=== PATIENT | male | born 1985 | race Caucasian/White ===

== ENCOUNTER 2019-12-19 14:33 | Emergency (ER) | payer BC, SELFPAY ==
[2019-12-19 14:44] VITALS: BP 147/77; PULSE 78; RESP 20; TEMP 36.5; O2SAT 99
--- NOTE | 2019-12-19 14:49 | ED.GENADULT ---
HPI - General Adult General Chief complaint: Ear Stated complaint: L ear pain Time Seen by Provider: 12/19/19 14:49 Source: patient and RN notes reviewed Mode of arrival: ambulatory Limitations: no limitations History of Present Illness HPI narrative: 34-year-old male presents with complaints of left otalgia for the past 4 days. Denies swimming or getting water into ear. Jeremiah believes it is related to wearing masks at work. History of seasonal allergies on Claritin daily, discussed using Claritin D for several weeks. Aleve daily and put Peroxide in ear with little relief. Denies ear itching, drainage, or trouble hearing. Denies URI symptoms. No high fevers or chills. Denies injury to the ear. No nasal drainage and congestion. Denies nausea, vomiting, tinnitus, and dizziness. Remains active. The patient reports he have not been diagnosed with COVID-19. The patient reports he is not waiting for the results of a COVID-19 lab test. The patient reports he do not have fever, chills, weakness, fatigue, myalgia, or facial swelling. The patient reports he do not have a new or worsening cough or shortness of breath. Denies chest pain. The patient reports he do not have any rhinorrhea, congestion, sore throat, abdominal pain, and diarrhea. Tolerating po intake well. Denies recent traveling. Denies concerns for COVID-19 or exposures been home since [id number] order except for essential household needs, working, and return home. At this time, patient is not suspected of having COVID-19. Some parts of this dictation were generated by voice recognition software and may contain typographical and/or grammatical inaccuracies. Related Data Home Medications Medication Instructions Recorded Confirmed loratadine 10 mg tablet 10 mg PO DAILY 07/12/19 12/19/19 naproxen sodium 220 mg tablet 220 mg PO BID PRN 07/12/19 12/19/19 sertraline [Zoloft] 60 mg PO DAILY 12/19/19 12/19/19 Allergies Allergy/AdvReac Type Severity Reaction Status Date / Time Penicillins Allergy Unknown Rash Verified 07/12/19 14:28 Review of Systems Review of Systems: Narrative: CONSTITUTIONAL: Denies fever, chills, sweats. EYES: Denies visual changes, redness, discharge. ENT: Denies rhinorrhea, congestion, sore throat. Complains of LT otalgia. CARDIOVASCULAR: Denies chest pain, palpitations, edema. RESPIRATORY: Denies dyspnea, wheezing, cough. GASTROINTESTINAL: Denies abdominal pain, nausea, vomiting, diarrhea. GENITOURINARY: Denies dysuria, hematuria, abnormal discharge. SKIN: Denies rash or itching. MUSCULOSKELETAL: Denies acute back pain, joint pain, or myalgia. NEUROLOGIC: Denies numbness or focal weakness. PSYCHIATRIC: Denies anxiety or depression. All systems reviewed & are unremarkable except as noted in HPI and below. [facility] Past Medical History Medical History (Updated 12/19/19 @ 16:23 by KARLA Dorman) Chronic low back pain without sciatica Depression Environmental allergies Scoliosis Surgical History Surgical History History of cholecystectomy age 20 [place] teeth extracted around 2009 Family History Family History (Updated 12/19/19 @ 15:00 by KARLA Dorman) Father Hypertension Heart disease A-Fib Mother Heart disease A-Fib Social History Social History (Updated 12/19/19 @ 15:01 by KARLA Dorman) Smoking status: Light tobacco smoker Tobacco type: cigars Second hand tobacco smoke exposure: Yes Additional smoking assessment comments: 1 or 2 cigars a year, rarely Alcohol intake: current Substance use: never Substance use type: does not use Living arrangements: with family Occupation/Education: occupation Gender identity (if verbalized by the patient): Male Comments At time of signature, agree with nurse past medical, surgical, social, and family history. There is relevant patient's past medical histor
== END 2019-12-19 15:09 | disposition home or self-care (01) ==
PROVIDERS: Emergency Provider Nurse Practitioner Family; PCP Family Medicine
DX: H60.392 Other infective otitis externa, left ear (principal); F32.9 Major depressive disorder, single episode, unspecified; M41.9 Scoliosis, unspecified
CPT/HCPCS: 99213; G0463

== ENCOUNTER → 2021-02-26 17:01 | Outpatient (CLI) | payer BC, SELFPAY ==
--- NOTE | ~2021-02-26 | XR_ITS ---
EXAMINATION: XR lumbar spine min 4V DATE: 02/26/2021 17:33 INDICATION: Low back pain TECHNIQUE: Anteroposterior, lateral, and bilateral oblique views of the lumbar spine, and cone-down l ateral view of the lumbosacral junction were obtained. COMPARISON: 04/15/2017 and MRI, 10/11/2018 FINDINGS: There are 4 mm of stable retrolisthesis of L4 on L5 there is moderate facet osteoarthritis at L4-5. No fracture is identified. The vertebral body heights are maintained. There is unchanged sev ere loss of intervertebral disc space height at L4-5. Cholecystectomy clips are noted in the right up per quadrant. IMPRESSION: 1. Severe lumbar spondylosis at L4-5 without acute findings or significant interval change. Reviewed, dictated and finalized at location A. IMPRESSION: 1. Severe lumbar spondylosis at L4-5 without acute findings or significant inte rval change.
== END ==
DX: M47.896 Other spondylosis, lumbar region (principal)
CPT/HCPCS: 72110

== ENCOUNTER 2021-09-01 12:56 | Emergency (ER) | payer BC, SELFPAY ==
[2021-09-01 13:33] VITALS: BP 124/82; PULSE 82; RESP 16; TEMP 36.7; O2SAT 100
[2021-09-01 14:42] VITALS: BP 128/86; PULSE 74; RESP 18; TEMP 36.8; O2SAT 97
--- NOTE | 2021-09-01 15:03 | ED.BACK ---
HPI - Back Pain/Injury General Chief Complaint: Back Pain/Injury Stated Complaint: lower back pain, left leg numbness Time Seen by Provider: 09/01/21 14:54 Source: patient Mode of arrival: ambulatory Limitations: no limitations History of Present Illness HPI Narrative: 36-year male presents emergency room secondary pain in the lower portion of the back with some radiation to his left leg. He had some intermittent pain to his back for several years. But however in the last week has been getting some pain that goes down his left leg. Had MRI performed a few years ago which showed some bulging disc. Denies recent trauma injuries or falls. No urinary or bowel issues noted with this. Is just been taking some [id number] medication for this to help control the pain. He states recently got a new couch with a recliner and states been laying in that he thinks his back next gotten worse. Related Data Home Medications Medication Instructions Recorded Confirmed loratadine 10 mg tablet 10 mg PO DAILY 07/12/19 09/01/21 Allergies Allergy/AdvReac Type Severity Reaction Status Date / Time Penicillins Allergy Unknown Rash Verified 09/01/21 14:47 Review of Systems Review of Systems: CONSTITUTIONAL: Denies fever, chills, or sweats. EYES: Denies visual changes, redness, or discharge. ENT: Denies rhinorrhea, congestion, sore throat, or otalgia. CARDIOVASCULAR: Denies chest pain, palpitations, or edema. RESPIRATORY: Denies cough or dyspnea. GASTROINTESTINAL: Denies abdominal pain, nausea, vomiting, or diarrhea. GENITOURINARY: Denies dysuria or hematuria. SKIN: Denies rash or itching. MUSCULOSKELETAL: Pain in the lower portion of the back with some radiation of pain down his left leg NEUROLOGIC: Denies headache, numbness, or weakness. PSYCHIATRIC: Denies anxiety or depression. [facility] Past Medical History Medical History Chronic low back pain without sciatica Depression Environmental allergies Scoliosis Surgical History Surgical History History of cholecystectomy age 20 [place] teeth extracted around 2009 Family History Family History Father Hypertension Heart disease A-Fib Mother Heart disease A-Fib Social History Social History Smoking status: Never smoker Tobacco type: cigars Second hand tobacco smoke exposure: Yes Additional smoking assessment comments: 1 or 2 cigars a year, rarely Alcohol intake: current Alcohol use details: consumes 2 beers socially Substance use: never Substance use type: does not use Gender identity (if verbalized by the patient): Male Exam Narrative: APPEARANCE: Well appearing, no pain or distress, well-nourished. Head normocephalic and atraumatic. EYES: PERRLA/EOMI, conjunctivae very clear. NOSE: Normal with no drainage EARS:TMS clear Maribell Selby, with good light reflex. THROAT: Pharynx clear, no exudate. NECK: Supple. No adenopathy, no masses. RESPIRATORY: Airway patent, respirations nonlabored. Clear to auscultation bilaterally, no rales, rhonchi, wheezing. CARDIOVASCULAR: Regular rate and rhythm without murmurs, rubs, or gallops. ABDOMINAL: Soft, nontender, nondistended, no hepatosplenomegaly Musculoskeletal: Moves all extremities. Strength/ROM intact, No edema, No calf tenderness. Some tenderness to palpation in the left lower lumbar region. Slightly positive straight leg raising on the left at about 60 to 70 degrees. NEURO: Alert. Cranial nerves II through XII intact. Normal gait. Good coordination. Nonfocal examination. SKIN:: Warm, dry. Normal Color PSYCHIATRIC: Normal affect/mood, normal interaction Course Vital Signs Vital signs: Vital Signs Temperature 98.1 F 09/01/21 13:33 Pulse Rate 82 09/01/21 13:33 Respiratory Rate
== END 2021-09-01 15:30 | disposition home or self-care (01) ==
LOC: ANHED 15:31
PROVIDERS: Emergency Provider Emergency Medicine
DX: M54.16 Radiculopathy, lumbar region (principal); G89.29 Other chronic pain; F32.A Depression, unspecified; Z88.0 Allergy status to penicillin; Z77.22 Contact with and (suspected) exposure to environmental tobacco smoke (acute) (chronic)
CPT/HCPCS: 99283

== ENCOUNTER 2021-09-22 14:38 | Outpatient (CLI) | payer BC, SELFPAY ==
--- NOTE | ~2021-09-22 | MR_ITS ---
EXAMINATION: MR lumbar spine wo con DATE: 09/22/2021 15:21 INDICATION: Low back pain TECHNIQUE: Magnetic resonance imaging (MRI) of the lumbar spine was performed without intravenous con trast. Sequences included sagittal T2-weighted FSE, sagittal T2-weighted FS FSE, sagittal T1-weighted FSE, and axial T2-weighted FSE. COMPARISON: None FINDINGS: Review of prior scoliosis radiographs dated 10/25/2013 demonstrates 12 paired ribs with pair of hypopl astic riblets at T12. Transitional sacralized L5 segment with 4 intervening nonrib-bearing lumbar seg ments L1-L4. Approximately 10 degrees thoracolumbar levocurvature. 4 mm retrolisthesis L4 on L5. Payam tebral body heights are normal. Schmorl's node along the inferior endplate of L1. Mild disc height lo ss at T12-L1 and L2-L3. Severe disc height loss at L4-L5. T1 hyperintense L5 hemangioma. The conus me dullaris terminates at L1-L2. There is normal signal in the caudal spinal cord. Paravertebral soft ti ssues are unremarkable. The following disc levels are specifically discussed: T11-T12: The disc does not extend beyond the endplate margins. There is minimal bilateral facet joint osteoarthritis. There is no neural foraminal stenosis. There is no central canal stenosis. T12-L1: The disc does not extend beyond the endplate margin. There is mild left and minimal right fac et joint osteoarthritis. There is no neural foraminal stenosis. There is no central canal stenosis. L1-L2: Disc is mildly bulging. There is mild right facet joint osteoarthritis. There is no neural for aminal stenosis. There is mild central canal stenosis. L2-L3: Disc is bulging. There is mild right facet joint osteoarthritis. There is mild bilateral neura l foraminal stenosis. There is mild central canal stenosis. L3-L4: Disc is mildly bulging. There is minimal bilateral facet joint osteoarthritis. There is mild l eft neural foraminal stenosis. There is mild central canal stenosis. L4-L5: Annular fissure with disc extrusion of disc material extending up to 3 mm caudal to the level of the superior endplate of L5. There is moderate bilateral facet joint osteoarthritis. There is mode rate bilateral neural foraminal stenosis. There is mild central canal stenosis. L5-S1: The disc does not extend beyond the endplate margin. There is no facet joint osteoarthritis. T here is no neural foraminal stenosis. There is no central canal stenosis. IMPRESSION: 1. Relatively stable appearance of severe spondylosis at L4-L5 and mild spondylosis in the more cepha lad lumbar and lower thoracic spine. 2. 10 degree thoracolumbar levoscoliosis. Reviewed, dictated and finalized at location B. IMPRESSION: 1. Relatively stable appearance of severe spondylosis at L4-L5 and mild spondyl osis in the more cephalad lumbar and lower thoracic spine. 2. 10 degree thoracolumbar levoscoliosis.
== END 2021-09-22 14:39 | disposition home or self-care (01) ==
PROVIDERS: PCP Family Medicine; Visit Provider Family Medicine
DX: M47.816 Spondylosis without myelopathy or radiculopathy, lumbar region (principal); M47.894 Other spondylosis, thoracic region
CPT/HCPCS: 72148

== ENCOUNTER 2022-12-14 09:19 | Emergency (ER) | payer BC, SELFPAY ==
--- NOTE | ~2022-12-14 | XR_ITS ---
EXAMINATION: XR abdomen/kub 1V DATE: 12/14/2022 09:57 INDICATION: Right abdominal pain. TECHNIQUE: A supine view of the abdomen on 2 radiographs was obtained. COMPARISON: CT abdomen and pelvis 08/13/2015 FINDINGS: There are no dilated loops of bowel. There is a large volume of stool in the colon. Surgica l clips in the right upper quadrant are likely from cholecystectomy. IMPRESSION: 1. Nonobstructive bowel gas pattern. Reviewed, dictated and finalized at location A.
[2022-12-14 09:32] VITALS: BP 132/106; PULSE 110; RESP 16; TEMP 36.5; O2SAT 100
--- NOTE | 2022-12-14 09:38 | ED.ABDPAIN ---
HPI - Abdominal Pain General Chief Complaint: Abdominal Pain Stated Complaint: After Eat & Drink get chills for a week; headache Time Seen by Provider: 12/14/22 09:38 Source: patient, RN notes reviewed and old records reviewed Mode of arrival: ambulatory Limitations: no limitations History of Present Illness HPI narrative: 37 year old male presents to express care with complaints of abdominal cramping and some right abdominal discomfort in mid and upper abdomen area with decreased appetite since last Wednesday.Patient reports that his appetite is decreased has been taking fluids well, has had intermittent nausea with emesis X1 with no diarrhea. Patient also reports that he had small BM yesterday. Patient does also state headache pain behind his eyes and at times feeling flushed Patient reports that he has taken dagoberto seltzer and he has taken NyQuil to help him sleep.Patient reports that he was apple to tolerate some toast and soup yesterday and has been drinking nathalia makenna and apple juice. MD elicited complaint: abdominal pain and other (headache) Pertinent past history: other (history of cholecystectomy) Onset (ago): day(s) (5) Pain Consistency: intermittent Location: epigastric and RUQ Severity: moderate Radiation: none Treatments prior to arrival: other (dagoberto seltzer and NyQuil) Related Data Home Medications Medication Instructions Recorded Confirmed cetirizine 10 mg capsule (Zyrtec) 10 mg PO DAILY PRN Allergic 09/02/21 12/14/22 Symptoms Allergies Allergy/AdvReac Type Severity Reaction Status Date / Time Penicillins Allergy Unknown Rash Verified 12/14/22 09:30 Review of Systems Review of Systems: CONSTITUTIONAL: Denies fever, chills, reports some sweats ENT: Denies rhinorrhea, congestion, sore throat, or otalgia. CARDIOVASCULAR: Denies chest pain, palpitations, or edema. RESPIRATORY: Denies cough or dyspnea. GASTROINTESTINAL: Reports right mid abdominal pain and upper abdominal pain, nausea, vomiting X1, no diarrhea. GENITOURINARY: Denies dysuria or hematuria. SKIN: Denies rash or itching. MUSCULOSKELETAL: Denies back pain, joint pain, or myalgia. NEUROLOGIC: Reports intermittent headache,no numbness, or weakness. All systems reviewed & are unremarkable except as noted in HPI and below PMFSH Past Medical History Medical History Chronic low back pain without sciatica Depression Environmental allergies Low libido Scoliosis Surgical History Surgical History History of cholecystectomy age 20 [place] teeth extracted around 2009 Family History Family History Father Hypertension Heart disease A-Fib Mother Heart disease A-Fib Social History Social History Smoking status: Never smoker Tobacco type: cigars Second hand tobacco smoke exposure: Yes Additional smoking assessment comments: 1 or 2 cigars a year, rarely Alcohol intake: current Alcohol use details: consumes 2 beers socially Substance use: never Substance use type: does not use Lack of Transportation: No Lack of Food: Never True Current Housing: I Have Housing Concerned About Future Housing: No Difficulty Paying Gas/Electric Bills: No Difficulty Paying for Meds: No Currently Unemployed: No Education: Bachelor's Degree Difficulty w/ Childcare or Family Care: No Living arrangements: with family Occupation/Education: occupation Gender identity (if verbalized by the patient): Male Comments At time of signature, agree with nursing past medical, surgical, social and family history. There is no relevant family history pertinent to the presenting complaint Exam Narrative: GENERAL: Well-appearing, well-nourished, and in no acute distress. HEAD: Normocephalic, atraumatic.
== END 2022-12-14 10:18 | disposition home or self-care (01) ==
PROVIDERS: Emergency Provider Registered Nurse; PCP Family Medicine
DX: R11.2 Nausea with vomiting, unspecified (principal); R10.11 Right upper quadrant pain; M41.9 Scoliosis, unspecified
CPT/HCPCS: 74018; 99213; G0463

== ENCOUNTER → 2022-12-25 07:56 | Outpatient (CLI) | payer BC, SELFPAY ==
--- NOTE | ~2022-12-25 | XR_ITS ---
EXAMINATION: XR abdomen obstructive series DATE: 12/25/2022 08:26 INDICATION: 3 weeks of constipation TECHNIQUE: Frontal supine and upright views of the abdomen were obtained. COMPARISON: 12/14/2022 FINDINGS: Moderate to large amount of stool scattered throughout the colon consistent with provided history of constipation. No dilated loops of gas-filled small bowel to suggest obstruction. Cholecystectomy clip s in right upper quadrant. No free intraperitoneal gas. Visualized lung bases are clear. Heart size is normal. Mild thoracolumbar levoscoliosis. IMPRESSION: 1. Moderate to large amount of colonic stool consistent with constipation. No free intraperitoneal ga s or dilated gas-filled loops of bowel to suggest obstruction. Reviewed, dictated and finalized at location A. IMPRESSION: 1. Moderate to large amount of colonic stool consistent with constipation. No f ree intraperitoneal gas or dilated gas-filled loops of bowel to suggest obstruc tion.
== END ==
PROVIDERS: PCP Family Medicine; Visit Provider Nurse Practitioner Family
DX: K59.00 Constipation, unspecified (principal)
CPT/HCPCS: 74019

== ENCOUNTER → 2023-03-08 08:04 | Outpatient (CLI) | payer BC, SELFPAY ==
--- NOTE | ~2023-03-08 | MR_ITS ---
EXAMINATION: MR lumbar spine wo con DATE: 03/08/2023 08:30 INDICATION: Low back pain. Bilateral leg numbness. TECHNIQUE: Magnetic resonance imaging (MRI) of the lumbar spine was performed without intravenous con trast. Sequences included sagittal T2-weighted FSE, sagittal T2-weighted FS FSE, sagittal T1-weighted FSE, and axial T2-weighted FSE. COMPARISON: Lumbar spine MRI 09/22/2021. Scoliosis series 10/25/2013 FINDINGS: There is 14 degrees levoscoliosis of thoracolumbar spine. L5 is a transitional segment. The re are Schmorl's nodes at multiple levels. There is severely decreased disc height at L4-L5 with endp late remodeling. The distal spinal cord signal intensity is normal. The conus medullaris is at L1-L2. The following disc levels are specifically discussed: L1-L2: The disc does not extend beyond the endplate margin. There is mild bilateral facet joint osteo arthritis. There is no neural foraminal stenosis. There is no central canal stenosis. L2-L3: The disc is mildly bulging. There is moderate right and mild left facet joint osteoarthritis. There is mild bilateral neural foraminal stenosis. There is no central canal stenosis. L3-L4: The disc does not extend beyond the endplate margin. There is mild bilateral facet joint osteo arthritis. There is no neural foraminal stenosis. There is no central canal stenosis. L4-L5: The disc is bulging and has an annular fissure. There is moderate bilateral facet joint osteoa rthritis. There is moderate bilateral neural foraminal stenosis. There is mild central canal stenosis . L5-S1: The disc does not extend beyond the endplate margin. There is no facet joint hypertrophy. Ther e is no neural foraminal stenosis. There is no central canal stenosis. IMPRESSION: 1. Severe spondylosis at L4-L5 and mild spondylosis at other levels, stable from 09/22/2021. 2. Thoracolumbar levoscoliosis. Reviewed, dictated and finalized at location A. IMPRESSION: 1. Severe spondylosis at L4-L5 and mild spondylosis at other levels, stable fro m 09/22/2021. 2. Thoracolumbar levoscoliosis.
== END ==
DX: M47.26 Other spondylosis with radiculopathy, lumbar region (principal)
CPT/HCPCS: 72148

== ENCOUNTER 2023-03-25 09:05 | Emergency (ER) | payer BC, SELFPAY ==
--- NOTE | ~2023-03-25 | CT_ITS ---
EXAMINATION: CT abdomen pelvis w con DATE: 03/25/2023 10:01 INDICATION: Right lower quadrant abdominal pain TECHNIQUE: Computed tomography (CT) of the abdomen and pelvis was performed with 100 mL Omnipaque-350 intravenous contrast. Automated exposure control and iterative reconstruction technique were employe d. The dose-length product was 554.75 mGy-cm. COMPARISON: None FINDINGS: Lung bases are clear. Heart size is normal. No pericardial or pleural effusion. Cholecystectomy clips the gallbladder fossa. Liver, pancreas, bilateral adrenal glands and kidneys are normal. Nonspecific mild splenomegaly measuring up to 15.4 x 9.9 x 11.2 cm. Bowels including the appendix are normal wit h no periappendiceal inflammatory stranding to suggest acute appendicitis. Bladder is normal. No free intraperitoneal gas or fluid. No pathologically enlarged abdominal or pelvic lymphadenopathy. Mild l ower thoracic dextro scoliosis with compensatory mild lumbar levocurvature. Severe degenerative disc disease at L5-S1. IMPRESSION: 1. No acute intra-abdominal/pelvic process. Specifically the appendix is normal. 2. Nonspecific mild splenomegaly. Reviewed, dictated and finalized at location A. IMPRESSION: 1. No acute intra-abdominal/pelvic process. Specifically the appendix is normal . 2. Nonspecific mild splenomegaly.
[2023-03-25 09:09] VITALS: BP 131/78; PULSE 78; RESP 16; TEMP 36.4; O2SAT 97
[2023-03-25 09:36] LABS: Basophils Percent Auto 0.8 % (0.2-1.2); Eosinophils Absolute Auto 0.1 K/mm3 (0-0.3); Eosinophils Percent Auto 2.1 % (0-4.4); Hematocrit 45.4 % (42.0-52.0); Hemoglobin 15.2 g/dL (14.0-18.0); Immature Granulocyte Absolute 0.01 K/mm3 (0.00-0.031); Immature Granulocyte Percent A 0.2 % (0-0.5); Lymphocytes Absolute Auto 1.01 K/mm3 (0.9-3.2); Lymphocytes Percent Auto 19.5 % (18.3-44.2); Mean Corpuscular HGB Conc 33.5 g/dl (32-36); Mean Corpuscular Hemoglobin 28.4 pg (26-34); Mean Corpuscular Volume 84.7 fl (80-100); Mean Platelet Volume 9.4 fl (7.4-10.4); Monocytes Absolute Auto 0.3 K/mm3 (0.1-0.6); Monocytes Percent Auto 6.4 % (2.6-8.5); Neutrophils Absolute Auto 3.7 K/mm3 (1.3-6.7); Platelet Count Result 201 k/mm3 (150-375); Red Blood Count 5.36 M/mm3 (4.6-6.20); Red Cell Distribution Width 12.6 % (11.5-14.5); White Blood Count 5.2 K/mm3 (4.5-10.0)
[2023-03-25 09:43] LABS: Alanine Aminotransferase 33 U/L (6-50); Albumin Level 4.8 g/dL (3.5-5.1); Alkaline Phosphatase 42 U/L (38-126); Anion Gap 8 mmol/L (8-16); Aspartate Amino Transferase 24 U/L (17-59); Bilirubin,Total 2.4 mg/dL (0.2-1.3); Blood Urea Nitrogen 9 mg/dL (9-20); Calcium 9.3 mg/dL (8.4-10.2); Carbon Dioxide 27 mmol/L (22-30); Chloride 106 mmol/L (98-107); Estimated CRCL calculation 177 ml/min; Estimated Glomerular Filt Rate > 60; Glucose 89 mg/dL (65-110); Lipase 52 U/L (23-300); Potassium 3.9 mmol/L (3.4-5.0); Sodium 141 mmol/L (137-145)
[2023-03-25] MEDS: ONDANSETRON INJ 4 MG/2 ML VIAL IV PUSH (10:09)
[2023-03-25] MEDS: MORPHINE SULFATE (*CRX) 4 MG/ML INJ IV PUSH (10:09)
[2023-03-25 10:22] LABS: Appearance Urine Clear (Clear); Bilirubin Urine Negative (Negative); Blood Urine Negative (Negative); Color Urine Yellow (Yellow); Glucose Urine UA Negative (Negative); Ketones Urine Negative (Negative); Leukocyte Esterase Ur Negative LEU/UL (Negative); Nitrate Urine Negative (Negative); Protein Urine Negative (Negative); pH Urine 7.5 (5.0-9.0)
[2023-03-25 10:32] LABS: Add Urine Microscopic? NO; Specific Grav Ur 1.071 (1.001-1.035)
[2023-03-25 10:48] VITALS: BP 135/84; PULSE 75; RESP 18; O2SAT 100
--- NOTE | 2023-03-25 18:49 | ED.ABDPAIN ---
HPI - Abdominal Pain General Chief Complaint: Abdominal Pain Stated Complaint: abd cramping, lightheaded Time Seen by Provider: 03/25/23 09:35 History of Present Illness HPI narrative: Patient states he has not feeling well the last few days with abdominal discomfort, nausea and vomiting, he had been getting up to go to the bathroom couple days ago and felt woozy and lightheaded, he had a brief episode of syncope and had no chest pain or difficulty breathing afterwards, went to the ER by ambulance but they were too full so went home. Today his doctor sent him here because he was having abdominal pain to rule out appendicitis or other etiologies. Related Data Home Medications Medication Instructions Recorded Confirmed cetirizine 10 mg capsule (Zyrtec) 10 mg PO DAILY PRN Allergic 09/02/21 03/25/23 Symptoms Allergies Allergy/AdvReac Type Severity Reaction Status Date / Time Penicillins Allergy Unknown Rash Verified 03/25/23 08:22 Review of Systems Review of Systems: CONST: No fever. HEENT: No sore throat C/V: No chest pain RESP: No cough GI: Reports abdominal pain, nausea, vomiting : No dysuria. M/S: No joint pain. SKIN: No rash. NEURO: Syncope PSYCH: [No depression] [facility] Past Medical History Medical History Chronic low back pain without sciatica Constipation Depression Environmental allergies Low libido Scoliosis Syncope and collapse Surgical History Surgical History History of cholecystectomy age 20 [place] teeth extracted around 2009 Family History Family History Father Hypertension Heart disease A-Fib Mother Heart disease A-Fib Social History Social History Smoking status: Never smoker Tobacco type: cigars Second hand tobacco smoke exposure: Yes Additional smoking assessment comments: 1 or 2 cigars a year, rarely Alcohol intake: current Alcohol use details: consumes 2 beers socially Substance use: never Substance use type: does not use Lack of Transportation: No Lack of Food: Never True Current Housing: I Have Housing Concerned About Future Housing: No Difficulty Paying Gas/Electric Bills: No Difficulty Paying for Meds: No Currently Unemployed: No Education: Bachelor's Degree Difficulty w/ Childcare or Family Care: No Living arrangements: with family Occupation/Education: occupation Gender identity (if verbalized by the patient): Male Exam Narrative: EXAMINATION OF ORGAN SYSTEMS/BODY AREAS: Constitutional: Vital signs per nursing GENERAL:[No acute distress, non-toxic appearing.] HEAD: Normal with no signs of head trauma. EYES: EOMI, conjunctiva normal ENT: Hearing grossly intact LUNGS: Nonlabored breathing. HEART: [Regular rate and rhythm] ABD: [Soft], [mildly tender to palpation LLQ / RLQ] EXT: Normal range of motion SKIN: [No rashes or lesions.] NEURO: [Alert and oriented x 3. No gross focal sensory or strength deficits.] PSYCH: Normal affect Course Vital Signs Vital signs: Vital Signs Temperature 97.6 F 03/25/23 09:09 Pulse Rate 78 03/25/23 09:09 Respiratory Rate 16 03/25/23 09:09 Blood Pressure 131/78 03/25/23 09:09 Pulse Oximetry 97 03/25/23 09:09 Oxygen Delivery Room Air 03/25/23 09:09 Temperature 97.6 F 03/25/23 09:09 Pulse Rate 75 03/25/23 10:48 Respiratory Rate 18 03/25/23 10:48 Blood Pressure 135/84 03/25/23 10:48 Pulse Oximetry 100 03/25/23 10:48 Oxygen Delivery Room Air 03/25/23 09:09 MDM - Abdominal Pain MDM Narrative Medical decision making narrative: Electronic medical record was reviewed. Patient presented to the ED with complaint of [abdominal pain and vomiting, he also had an episode of syncope recently
== END 2023-03-25 10:50 | disposition home or self-care (01) ==
PROVIDERS: Emergency Provider Emergency Medicine; PCP Family Medicine
DX: R10.9 Unspecified abdominal pain (principal); F17.290 Nicotine dependence, other tobacco product, uncomplicated; Z90.49 Acquired absence of other specified parts of digestive tract; R16.1 Splenomegaly, not elsewhere classified
CPT/HCPCS: 36415; 74177; 80053; 81003; 83690; 85025; 96374; 96375; 99284; J2270; J2405; Q9967

== ENCOUNTER 2023-07-05 19:37 | Emergency (ER) | payer BC, SELFPAY ==
--- NOTE | ~2023-07-05 | CT_ITS ---
EXAMINATION: CT abdomen pelvis w con DATE: 07/05/2023 22:14 INDICATION: right lower quadrant pain TECHNIQUE: Computed tomography (CT) of the abdomen and pelvis was performed with 100 mL Omnipaque-350 intravenous contrast. Automated exposure control and iterative reconstruction technique were employe d. The dose-length product was 490.15 mGy-cm. COMPARISON: 03/25/2023. FINDINGS: Lower thorax: Minimal dependent atelectasis Liver: Normal. Biliary/Gallbladder: Gallbladder is absent. No bile duct dilation. Pancreas: No mass or duct dilation. Spleen: Normal. Adrenals:No mass. Kidneys: No suspicious mass, obstructing stone, or hydronephrosis. GI tract: Mild distal esophageal and gastric wall edema. No small or large bowel dilation. The append ix is compressed between loops of the cecum and small bowel and therefore partially visualized but no rmal in appearance, without inflammatory change. Mesentery/Peritoneum: No ascites, mass, or free air. Retroperitoneum: No mass. Pelvis: Pelvic organs are within normal limits. Soft Tissues: Soft tissues and body wall unremarkable. Bones: No acute osseous finding. IMPRESSION: Mild esophagitis/gastritis. Otherwise, no acute abdominopelvic process detected Reviewed, dictated and finalized at location K. ORM MACHINE OPERATOR
--- NOTE | ~2023-07-05 | CT_ITS ---
EXAMINATION: CT brain wo con DATE: 07/05/2023 22:11 INDICATION: headache . TECHNIQUE: Computed tomography (CT) of the head was performed without intravenous contrast. The mA wa s adjusted according to patient size. Iterative reconstruction technique was employed. The dose-lengt h product was 605.33 mGy-cm. COMPARISON: None. FINDINGS: No acute intracranial hemorrhage or extra-axial fluid collection. No hydrocephalus, mass, or herniation. No acute ischemic infarct. Unremarkable dural venous sinus attenuation. No acute osseous abnormality. The aerated spaces are clear. IMPRESSION: No acute intracranial process. Reviewed, dictated and finalized at location K. ECT MANAGER/DESIGN MANAGER
[2023-07-05 19:53] VITALS: BP 142/81; PULSE 80; RESP 15; TEMP 36.4; O2SAT 100
--- NOTE | 2023-07-05 19:58 | ECG_ITS ---
Measurements Intervals [place] Rate: 80 P: 72 MT: 159 QRS: 63 QRSD: 104 T: 60 QT: 373 QTc: 433 Interpretive Statements SINUS RHYTHM WITH SINUS ARRHYTHMIA NO PREVIOUS ECG AVAILABLE FOR COMPARISON Electronically Signed On 07-06-2023 8:40:46 DIRECTOR TRAFFIC [employer]ANNING by Bakari Castle M.D.
[2023-07-05 20:24] LABS: Basophils Absolute Auto 0.1 K/mm3 (0.0-0.1); Basophils Percent Auto 0.7 % (0.2-1.2); Eosinophils Absolute Auto 0.1 K/mm3 (0-0.3); Eosinophils Percent Auto 1.7 % (0-4.4); Hematocrit 48.2 % (42.0-52.0); Hemoglobin 16.4 g/dL (14.0-18.0); Immature Granulocyte Absolute 0.01 K/mm3 (0.00-0.031); Immature Granulocyte Percent A 0.1 % (0-0.5); Lymphocytes Absolute Auto 1.77 K/mm3 (0.9-3.2); Mean Corpuscular Hemoglobin 28.3 pg (26-34); Mean Corpuscular Volume 83.1 fl (80-100); Mean Platelet Volume 9.8 fl (7.4-10.4); Monocytes Absolute Auto 0.6 K/mm3 (0.1-0.6); Monocytes Percent Auto 7.5 % (2.6-8.5); Neutrophils Absolute Auto 5.8 K/mm3 (1.3-6.7); Platelet Count Result 246 k/mm3 (150-375); Red Cell Distribution Width 12.7 % (11.5-14.5); White Blood Count 8.4 K/mm3 (4.5-10.0)
[2023-07-05 20:34] LABS: Alanine Aminotransferase 27 U/L (6-50); Albumin Level 4.7 g/dL (3.5-5.1); Alkaline Phosphatase 57 U/L (38-126); Anion Gap 10 mmol/L (8-16); Aspartate Amino Transferase 20 U/L (17-59); Bilirubin,Total 2.2 mg/dL (0.2-1.3); Blood Urea Nitrogen 8 mg/dL (9-20); Calcium 10.4 mg/dL (8.4-10.2); Carbon Dioxide 26 mmol/L (22-30); Chloride 109 mmol/L (98-107); Estimated CRCL calculation 175 ml/min; Estimated Glomerular Filt Rate > 60; Glucose 102 mg/dL (65-110); Lipase 66 U/L (23-300); Potassium 3.4 mmol/L (3.4-5.0); Sodium 145 mmol/L (137-145)
[2023-07-05 21:47] VITALS: PULSE 51; RESP 16; O2SAT 100
[2023-07-05] MEDS: SODIUM CHLORIDE 0.9% IV 1,000 ML 999 ML IV CONT (21:59)
[2023-07-05] MEDS: PROCHLORPERAZINE EDISYLATE 10 MG/2 ML VIAL IV PUSH (21:59)
[2023-07-05] MEDS: diphenhydrAMINE HCl INJ 50 MG/ML VIAL IV PUSH (21:59)
[2023-07-05] MEDS: MORPHINE SULFATE (*CRX) 4 MG/ML INJ IV PUSH (23:10)
[2023-07-05] MEDS: PANTOPRAZOLE SODIUM IV 40 MG VIAL IV PUSH (23:10)
[2023-07-05 23:11] VITALS: BP 135/80; PULSE 62; RESP 17; O2SAT 99
[2023-07-06 00:25] LABS: Appearance Urine Clear (Clear); Bilirubin Urine Negative (Negative); Blood Urine Negative (Negative); Color Urine Yellow (Yellow); Glucose Urine UA Negative (Negative); Ketones Urine 1+ mg/dL (Negative); Leukocyte Esterase Ur Negative LEU/UL (Negative); Nitrate Urine Negative (Negative); Protein Urine Negative (Negative); pH Urine 7.5 (5.0-9.0)
[2023-07-06 00:26] LABS: Specific Grav Ur 1.064 (1.001-1.035)
[2023-07-06 00:27] LABS: Add Urine Microscopic? NO
--- NOTE | 2023-07-06 00:48 | ED.GENADULT ---
HPI - General Adult General Chief complaint: Abdominal Pain Stated complaint: abd pain/migraines Time Seen by Provider: 07/05/23 21:39 History of Present Illness HPI narrative: patient 38-year-old gentleman presents emergency department with chief complaint of migraine headache and abdominal pain. Patient reports he has been having epigastric discomfort for several days has had some nausea but no vomiting. The patient reports that he has also had headache his eyes the patient reports that he has noticed some tingling over his body as well during this. Patient reports thoughts primary care provider but his symptoms have not improved from the medications they gave him does report that he has had migraines in the past without last episode was approximately 10 years ago patient does report that he has had a prior cholecystectomy Related Data Home Medications Medication Instructions Recorded Confirmed cetirizine 10 mg capsule (Zyrtec) 10 mg PO DAILY PRN Allergic 09/02/21 07/05/23 Symptoms Allergies Allergy/AdvReac Type Severity Reaction Status Date / Time Penicillins Allergy Unknown Rash Verified 07/05/23 19:38 Review of Systems Review of Systems: A 10 system review of systems was completed on the patient and is negative except for what is stated in the HPI. Nursing and ancillary documentation was reviewed. [facility] Past Medical History Medical History Chronic low back pain without sciatica Constipation Depression Environmental allergies Increased frequency of headaches Low libido Migraine aura, persistent, intractable Scoliosis Syncope and collapse Surgical History Surgical History History of cholecystectomy age 20 [place] teeth extracted around 2009 Family History Family History Father Hypertension Heart disease A-Fib Mother Heart disease A-Fib Social History Social History Smoking status: Never smoker Tobacco type: cigars Second hand tobacco smoke exposure: Yes Additional smoking assessment comments: 1 or 2 cigars a year, rarely Alcohol intake: current Alcohol use details: consumes 2 beers socially Substance use: never Substance use type: does not use Lack of Transportation: No Lack of Food: Never True Current Housing: I Have Housing Concerned About Future Housing: No Difficulty Paying Gas/Electric Bills: No Difficulty Paying for Meds: No Currently Unemployed: No Education: Bachelor's Degree Difficulty w/ Childcare or Family Care: No Living arrangements: with family Occupation/Education: occupation Gender identity (if verbalized by the patient): Male Exam Narrative: GENERAL: Well-appearing, well-nourished, and in no acute distress. HEAD: Normocephalic, atraumatic. EYES: PERRLA and EOMI. ENT: Nares clear, no rhinorrhea or epistaxis. Mucous membranes moist. NECK: Supple. CHEST: Clear to auscultation. No respiratory distress. HEART: Regular rate and rhythm. No murmur heard. Normal peripheral pulses. ABDOMEN: Soft, mild tenderness to palpation in the epigastric, nondistended, normal active bowel sounds. EXTREMITIES: Normal range of motion. No edema. SKIN: Warm, dry, no rash. NEURO: No focal deficits. Alert and oriented x3. PSYCH: Normal mood and affect. Course Vital Signs Vital signs: Vital Signs Temperature 36.4 C 07/05/23 19:53 Pulse Rate 80 07/05/23 19:53 Respiratory Rate 15 07/05/23 19:53 Blood Pressure 142/81 H 07/05/23 19:53 Pulse Oximetry 100 07/05/23 19:53 Oxygen Delivery Room Air 07/05/23 19:53 Temperature 36.4 C 07/05/23 19:53 Pulse Rate 62 07/05/23 23:11 Respiratory Rate 17 07/05/23 23:11 Blood Pressure 135/80 07/05/23 23:1
[2023-07-06] MEDS: BELLADONNA ALK/PHENOB ELIX 10 ML, MAG HYDROX/ALUMINUM HYD/SIMETH 30 ML, LIDOCAINE HCL 2... PO (00:50)
[2023-07-06] MEDS: DICYCLOMINE HCL INJ 20 MG/2 ML VIAL IM (00:50)
[2023-07-06 01:09] VITALS: BP 137/85; PULSE 89; RESP 16; O2SAT 98
== END 2023-07-06 01:20 | disposition home or self-care (01) ==
PROVIDERS: Emergency Provider Emergency Medicine; PCP Family Medicine
DX: G43.919 Migraine, unspecified, intractable, without status migrainosus (principal); K29.70 Gastritis, unspecified, without bleeding; Z90.49 Acquired absence of other specified parts of digestive tract; F17.210 Nicotine dependence, cigarettes, uncomplicated
CPT/HCPCS: 36415; 70450; 74177; 80053; 81003; 83690; 85025; 93005; 96361; 96372; 96374; 96375; 99284; A9270; C9113; J0500; J0780; J1200; J2270; J7030; Q9967

== ENCOUNTER 2023-12-08 11:42 | Emergency (ER) | payer BC, SELFPAY ==
[2023-12-08 11:46] VITALS: BP 136/82; PULSE 82; RESP 16; TEMP 36.8; O2SAT 100
--- NOTE | 2023-12-08 12:37 | ED.ABDPAIN ---
HPI - Abdominal Pain General Chief Complaint: Abdominal Pain Stated Complaint: ABD PAIN/DIZZY Source: patient and RN notes reviewed Mode of arrival: ambulatory Limitations: no limitations History of Present Illness HPI narrative: 38 y/o male presented for c/o upper abdominal pain, nausea, diarrhea x2-3 days. Able to eat bland foods yesterday, and took Tums with minimal improvement. Today he cannot tolerate food due to the sharp pain. Pain is worse when laying down. LBM today, states it has been loose and difficult to defecate. Denies vomiting, dysphagia, hematochezia or melena, fever, or lethargy. Has had similar episodes 02/2023 and 07/2023, was told he has 'holes in the stomach.' Hx cholecystectomy. Related Data Home Medications Medication Instructions Recorded Confirmed cetirizine 10 mg capsule (Zyrtec) 10 mg PO DAILY PRN Allergic 09/02/21 12/08/23 Symptoms Allergies Allergy/AdvReac Type Severity Reaction Status Date / Time Penicillins Allergy Unknown Rash Verified 12/08/23 11:54 Review of Systems Review of Systems: CONSTITUTIONAL: Denies body aches, fever, chills CARDIOVASCULAR: Denies chest pain, palpitations, or edema. RESPIRATORY: Denies cough or dyspnea. GASTROINTESTINAL: Endorses abdominal pain, nausea, diarrhea. Denies vomiting hematochezia, melena, hematemesis GENITOURINARY: Denies dysuria, hematuria, or CVA tenderness. SKIN: Denies rash MUSCULOSKELETAL: Denies back pain, joint pain, or myalgia. NEUROLOGIC: Denies headache, numbness, tingling, or weakness. All systems reviewed & are unremarkable except as noted in HPI and below PMFSH Past Medical History Medical History Annual visit for general adult medical examination without abnormal findings Chronic low back pain without sciatica Constipation Depression Environmental allergies GERD (gastroesophageal reflux disease) Increased frequency of headaches Low libido Migraine aura, persistent, intractable Scoliosis Syncope and collapse Surgical History Surgical History History of cholecystectomy age 20 [place] teeth extracted around 2009 Family History Family History Father Hypertension Heart disease A-Fib Mother Heart disease A-Fib Social History Social History Smoking status: Never smoker Tobacco type: cigars Second hand tobacco smoke exposure: Yes Additional smoking assessment comments: 1 or 2 cigars a year, rarely Alcohol intake: current Alcohol use details: consumes 2 beers socially Substance use: never Substance use type: does not use Do You Feel Safe in your Home?: Yes Lack of Transportation: No Lack of Food: Never True Current Housing: I Have Housing Concerned About Future Housing: No Difficulty Paying Gas/Electric Bills: No Difficulty Paying for Meds: No Currently Unemployed: No Education: Bachelor's Degree Difficulty w/ Childcare or Family Care: No Living arrangements: with family Occupation/Education: occupation Gender identity (if verbalized by the patient): Male Comments At time of signature, I have reviewed and agree with nursing past medical, surgical, social and family history unless otherwise noted. Please see nursing chart for further information. There is no relevant family history pertinent to the presenting complaint Exam Narrative: GENERAL: Well-appearing, and in no acute distress. EYES: EOMI. Conjunctivae normal. ENT: Mucous membranes pink and moist. CHEST: No respiratory distress. Clear to auscultation. HEART: Regular rate and rhythm. No murmur appreciated. Normal peripheral pulses. ABDOMEN: abd soft, nondistended, normal active bowel sounds. Tender abdomen to epigastric and upper quadrants; No guarding, rebound tenderness,
== END 2023-12-08 12:52 | disposition home or self-care (01) ==
PROVIDERS: Emergency Provider Nurse Practitioner Family; PCP Family Medicine
DX: R10.13 Epigastric pain (principal); R10.11 Right upper quadrant pain; R10.12 Left upper quadrant pain; K21.9 Gastro-esophageal reflux disease without esophagitis; M41.9 Scoliosis, unspecified
CPT/HCPCS: 99212; G0463

== ENCOUNTER 2023-12-08 13:16 | Emergency (ER) | payer BC, SELFPAY ==
--- NOTE | ~2023-12-08 | CT_ITS ---
EXAMINATION: CT abdomen pelvis w con DATE: 12/08/2023 15:01 INDICATION: Abdominal pain in the right upper quadrant worsening when eating TECHNIQUE: Computed tomography (CT) of the abdomen and pelvis was performed with 100 mL Omnipaque-350 intravenous contrast. Automated exposure control and iterative reconstruction technique were employe d. The dose-length product was 482.84 mGy-cm. COMPARISON: 07/05/2023 FINDINGS: The visualized thoracic dextrorotoscoliosis with associated chest wall deformity. Mild dependent atel ectasis in the left lower lobe. Heart size is normal. No pericardial or pleural effusion. Cholecystec indu clips the gallbladder fossa. Liver is normal with no intra or extrahepatic biliary ductal dilati on. Splenomegaly measuring 15.3 cm in maximal transaxial length. Pancreas, bilateral adrenal glands a nd kidneys are normal. Bowels including the appendix are normal with no obstruction. Bladder is shirlene l. Trace amount of free fluid in the deep pelvis . No abscess or free intraperineal gas. Severe spond ylosis at the lumbosacral junction. No pathologically enlarged abdominal or pelvic lymphadenopathy. T iny fat-containing umbilical hernia. IMPRESSION: 1. Trace amount of nonspecific free fluid in the deep pelvis of indeterminate etiology with no other acute intra-abdominal/pelvic process. 2. Nonspecific mild splenomegaly. Reviewed, dictated and finalized at location A. IMPRESSION: 1. Trace amount of nonspecific free fluid in the deep pelvis of indeterminate e tiology with no other acute intra-abdominal/pelvic process. 2. Nonspecific mild splenomegaly.
[2023-12-08 13:18] VITALS: BP 139/81; PULSE 86; RESP 20; TEMP 36.4; O2SAT 99
--- NOTE | 2023-12-08 13:31 | PC.NURSE ---
upon initiation of IV, patient became very diaphoretic and felt as if he was going to pass out. assisted patient to room, assisted to bed, cool washcloths given. IV started and blood obtained. patient states that he is feeling better. family at bedside
[2023-12-08 13:40] LABS: Basophils Absolute Auto 0.1 K/mm3 (0.0-0.1); Basophils Percent Auto 0.8 % (0.2-1.2); Eosinophils Absolute Auto 0.1 K/mm3 (0-0.3); Eosinophils Percent Auto 0.7 % (0-4.4); Hematocrit 45.3 % (42.0-52.0); Hemoglobin 16.2 g/dL (14.0-18.0); Immature Granulocyte Absolute 0.01 K/mm3 (0.00-0.031); Immature Granulocyte Percent A 0.1 % (0-0.5); Lymphocytes Absolute Auto 1.34 K/mm3 (0.9-3.2); Mean Corpuscular HGB Conc 35.8 g/dl (32-36); Mean Corpuscular Hemoglobin 29.6 pg (26-34); Mean Corpuscular Volume 82.7 fl (80-100); Mean Platelet Volume 10.4 fl (7.4-10.4); Monocytes Absolute Auto 0.5 K/mm3 (0.1-0.6); Monocytes Percent Auto 6.2 % (2.6-8.5); Neutrophils Absolute Auto 5.5 K/mm3 (1.3-6.7); Neutrophils Percent Auto 74.2 % (45.5-73.1); Platelet Count Result 199 k/mm3 (150-375); Red Blood Count 5.48 M/mm3 (4.6-6.20); White Blood Count 7.5 K/mm3 (4.5-10.0)
[2023-12-08 13:51] LABS: Alanine Aminotransferase 27 U/L (6-50); Alkaline Phosphatase 50 U/L (38-126); Anion Gap 14 mmol/L (4-12); Aspartate Amino Transferase 21 U/L (17-59); Bilirubin,Total 2.5 mg/dL (0.2-1.3); Blood Urea Nitrogen 7 mg/dL (9-20); Carbon Dioxide 24 mmol/L (22-30); Chloride 104 mmol/L (98-107); Estimated CRCL calculation 175 ml/min; Estimated Glomerular Filt Rate > 60; Glucose 99 mg/dL (65-110); Lipase 53 U/L (23-300); Potassium 3.4 mmol/L (3.4-5.0); Sodium 142 mmol/L (137-145)
--- NOTE | 2023-12-08 14:29 | ED.ABDPAIN ---
HPI - Abdominal Pain General Chief Complaint: Abdominal Pain Stated Complaint: abd pain Time Seen by Provider: 12/08/23 13:54 History of Present Illness HPI narrative: patient is a 38-year-old male with history of acid reflux, chronic back pain, depression here with abdominal pain. He states that 3-4 days ago he began having some upper abdominal pain. It seems to be worsening. He notes that it seems to be worse with certain foods and improved with gentle foods like applesauce and toast. He notes that this feels very similar to his prior episode of gastritis for which she was seen at this hospital in July of 2023. He had been taking Protonix and Carafate after that ER visit, he had been followed closely with his primary care doctor and head stop taking medications for gastritis about 3 months after initial episode. He notes that he typically watches the foods he eats but he did indulge with both alcohol and rich foods over the 01 of December weekend and is unsure if this could have triggered symptoms returning. He did have a cholecystectomy about 21 years ago. He denies fever, chills, cough, congestion but he has been experiencing a headache. Related Data Home Medications Medication Instructions Recorded Confirmed cetirizine 10 mg capsule (Zyrtec) 10 mg PO DAILY PRN Allergic 09/02/21 12/08/23 Symptoms Allergies Allergy/AdvReac Type Severity Reaction Status Date / Time Penicillins Allergy Unknown Rash Verified 12/08/23 11:54 Review of Systems Review of Systems: All systems reviewed & are unremarkable except as noted in HPI and below PMFSH Past Medical History Medical History Annual visit for general adult medical examination without abnormal findings Chronic low back pain without sciatica Constipation Depression Environmental allergies GERD (gastroesophageal reflux disease) Increased frequency of headaches Low libido Migraine aura, persistent, intractable Scoliosis Syncope and collapse Surgical History Surgical History History of cholecystectomy age 20 [place] teeth extracted around 2009 Family History Family History Father Hypertension Heart disease A-Fib Mother Heart disease A-Fib Social History Social History Smoking status: Never smoker Tobacco type: cigars Second hand tobacco smoke exposure: Yes Additional smoking assessment comments: 1 or 2 cigars a year, rarely Alcohol intake: current Alcohol use details: consumes 2 beers socially Substance use: never Substance use type: does not use Do You Feel Safe in your Home?: Yes Lack of Transportation: No Lack of Food: Never True Current Housing: I Have Housing Concerned About Future Housing: No Difficulty Paying Gas/Electric Bills: No Difficulty Paying for Meds: No Currently Unemployed: No Education: Bachelor's Degree Difficulty w/ Childcare or Family Care: No Living arrangements: with family Occupation/Education: occupation Gender identity (if verbalized by the patient): Male Exam Narrative: GENERAL: Well-appearing, well-nourished, and in no acute distress. HEAD: Normocephalic, atraumatic. EYES: PERRLA and EOMI. ENT: Nares clear. Mucous membranes moist. NECK: Supple. CHEST: Clear to auscultation. No respiratory distress. HEART: Regular rate and rhythm. Normal peripheral pulses. ABDOMEN: Soft, Epigastric tenderness with guarding. No rebound. EXTREMITIES: Normal range of motion. No edema. SKIN: Warm, dry, no rash. NEURO: No focal deficits. Alert and oriented x3. PSYCH: Normal mood and affect. Course Course Emergency Course: Chart review performed, patient here for abdominal pain. Sent by Urgent Care. Pain began 3 days ago, worse with food. Triage
[2023-12-08 14:34] VITALS: BP 116/85; PULSE 52; RESP 13; O2SAT 100
[2023-12-08] MEDS: LACTATED RINGERS 1,000 ML 999 ML IV CONT (15:09)
[2023-12-08] MEDS: ONDANSETRON INJ 4 MG/2 ML VIAL IV PUSH (15:09)
[2023-12-08] MEDS: MORPHINE SULFATE (*CRX) 4 MG/ML INJ IV PUSH (15:09)
[2023-12-08] MEDS: PANTOPRAZOLE SODIUM IV 40 MG VIAL IV PUSH (15:09)
[2023-12-08] MEDS: BELLADONNA ALK/PHENOB ELIX 10 ML, MAG HYDROX/ALUMINUM HYD/SIMETH 30 ML, LIDOCAINE HCL 2... PO (15:27)
[2023-12-08 15:58] LABS: Appearance Urine Clear (Clear); Bacteria Urine None Seen /hpf; Bilirubin Urine Negative (Negative); Blood Urine Negative (Negative); Color Urine Yellow (Yellow); Glucose Urine UA Negative (Negative); Ketones Urine Negative (Negative); Leukocyte Esterase Ur Trace LEU/UL (Negative); Nitrate Urine Negative (Negative); Non Pathogenic Casts 0-2; Protein Urine Negative (Negative); RBC Urine 0-2 /hpf (0-2); Specific Grav Ur 1.031 (1.001-1.035); Squamous Epithelial Cell Urine None Seen /hpf (Few); WBC Urine 0-5 /hpf (0-3); pH Urine 8.5 (5.0-9.0)
[2023-12-08 15:58] LABS: Influenza A QL RT-PCR Negative (Negative); Influenza B QL RT-PCR Negative (Negative); RSV RNA, RT-PCR Negative (Negative); SARS-CoV-2 RNA PCR Negative (Negative)
[2023-12-08 16:10] LABS: Add Urine Microscopic? YES
[2023-12-08 17:08] VITALS: BP 111/79; PULSE 91; RESP 18; O2SAT 100
== END 2023-12-08 17:13 | disposition home or self-care (01) ==
PROVIDERS: Emergency Medicine; Emergency Provider Student in an Organized Health Care Education/Training Program; PCP Family Medicine
DX: K29.00 Acute gastritis without bleeding (principal); Z20.822 Contact with and (suspected) exposure to COVID-19
CPT/HCPCS: 36415; 74177; 80053; 81001; 83690; 85025; 87637; 96361; 96374; 96375; 99284; A9270; J2270; J2405; J2470; J7120; Q9967

== ENCOUNTER 2023-12-10 12:48 | Outpatient (CLI) | payer BC, SELFPAY ==
[2023-12-10 14:14] LABS: Basophils Percent Auto 0.7 % (0.2-1.2); Eosinophils Percent Auto 0.7 % (0-4.4); Hematocrit 44.4 % (42.0-52.0); Hemoglobin 15.5 g/dL (14.0-18.0); Immature Granulocyte Absolute 0.01 K/mm3 (0.00-0.031); Immature Granulocyte Percent A 0.2 % (0-0.5); Lymphocytes Absolute Auto 1.09 K/mm3 (0.9-3.2); Mean Corpuscular HGB Conc 34.9 g/dl (32-36); Mean Corpuscular Hemoglobin 29.6 pg (26-34); Mean Corpuscular Volume 84.7 fl (80-100); Mean Platelet Volume 10.7 fl (7.4-10.4); Monocytes Absolute Auto 0.5 K/mm3 (0.1-0.6); Monocytes Percent Auto 8.9 % (2.6-8.5); Neutrophils Absolute Auto 4.3 K/mm3 (1.3-6.7); Neutrophils Percent Auto 71.5 % (45.5-73.1); Platelet Count Result 196 k/mm3 (150-375); Red Blood Count 5.24 M/mm3 (4.6-6.20); Red Cell Distribution Width 12.1 % (11.5-14.5); White Blood Count 6.1 K/mm3 (4.5-10.0)
[2023-12-10 14:20] LABS: Amylase 74 U/L (30-110)
[2023-12-10 14:22] LABS: Alanine Aminotransferase 24 U/L (6-50); Albumin Level 4.9 g/dL (3.5-5.1); Alkaline Phosphatase 47 U/L (38-126); Anion Gap 12 mmol/L (4-12); Aspartate Amino Transferase 37 U/L (17-59); Bilirubin,Total 3.3 mg/dL (0.2-1.3); Blood Urea Nitrogen 8 mg/dL (9-20); Calcium 9.5 mg/dL (8.4-10.2); Carbon Dioxide 26 mmol/L (22-30); Chloride 103 mmol/L (98-107); Cholesterol 129 mg/dL (0-200); Estimated Glomerular Filt Rate > 60; Glucose 91 mg/dL (65-110); HDL Direct 46 mg/dL; Potassium 3.6 mmol/L (3.4-5.0); Sodium 141 mmol/L (137-145); Triglycerides 50 mg/dL (<150)
[2023-12-10 14:33] LABS: LDL Cholesterol Direct 69 mg/dL
== END 2023-12-10 12:49 | disposition home or self-care (01) ==
LOC: ANHGOSHLAB 12:49
PROVIDERS: PCP Family Medicine; Visit Provider Nurse Practitioner Family
DX: E78.5 Hyperlipidemia, unspecified (principal); Z00.00 Encounter for general adult medical examination without abnormal findings; K59.00 Constipation, unspecified; R10.9 Unspecified abdominal pain; R17 Unspecified jaundice
CPT/HCPCS: 36415; 80053; 80061; 82150; 85025

== ENCOUNTER 2024-02-16 02:03 | Day surgery (SDC) | payer BC, SELFPAY ==
[2024-02-08 14:36] VITALS: BMI 22.7
[2024-02-16 12:15] VITALS: BP 123/80; PULSE 71; RESP 16; TEMP 36.3; O2SAT 100
[2024-02-16] MEDS: LACTATED RINGERS 1,000 ML 150 ML IV CONT (12:26)
--- NOTE | 2024-02-16 12:56 | WPDANESEPPF ---
Anes - Initial Pre Proc Eval Procedure: Operation Date: 02/16/24 13:30 Proposed Procedures p Esophagogastroduodenoscopy - Lei Lo MD Date/Time: 02/16/24 12:56 Surgeon: Lei Lo MD Pre Op Diagnosis: Epigastric pain, early satiety, anorexia Patient Data Age: 38 Gender: M Height: 1.96 m Weight: 84 kg Last Vital Signs Temp 36.3 C L 02/16/24 12:15 Pulse 71 02/16/24 12:15 Resp 16 02/16/24 12:15 BP 123/80 02/16/24 12:15 Pulse Ox 100 02/16/24 12:15 O2 Del Method Room Air 02/16/24 12:15 Allergies Allergy/AdvReac Type Severity Reaction Status Date / Time Penicillins Allergy Unknown Rash Verified 02/16/24 12:14 Home Medications Medication Instructions Recorded Confirmed Type cetirizine 10 mg capsule (Zyrtec) 10 mg PO DAILY PRN Allergic 09/02/21 02/16/24 History Symptoms bupropion HCl 75 mg tablet 75 mg PO DAILY 3 months #90 tabs 11/25/23 02/16/24 Rx sucralfate 1 gram tablet (Carafate) 1 g PO QID 10 days #40 tabs 12/08/23 02/16/24 Rx sertraline 100 mg tablet 200 mg PO DAILY #180 tabs 12/22/23 02/16/24 Rx pantoprazole 40 mg tablet,delayed 40 mg PO BID #60 tabs 01/27/24 02/16/24 Rx release (Protonix) Patient hx anesthesia problems: none Family hx anesthesia problems: none Results Review: All pre-operative results and documents have been reviewed as part of the pre-operative evaluation. [facility] Past Medical History Medical History Annual visit for general adult medical examination without abnormal findings Chronic low back pain without sciatica Constipation Depression Environmental allergies GERD (gastroesophageal reflux disease) High bilirubin Increased frequency of headaches Low libido Migraine aura, persistent, intractable Scoliosis Syncope and collapse Surgical History Surgical History History of cholecystectomy age 20 [place] teeth extracted around 2009 Family History Family History Father Hypertension Heart disease A-Fib Mother Heart disease A-Fib Social History Social History Smoking status: Never smoker Tobacco type: cigars Second hand tobacco smoke exposure: Yes Additional smoking assessment comments: 1 or 2 cigars a year, rarely Alcohol intake: current Alcohol use details: consumes 2 beers socially Substance use: never Substance use type: does not use Do You Feel Safe in your Home?: Yes Lack of Transportation: No Lack of Food: Never True Current Housing: I Have Housing Concerned About Future Housing: No Difficulty Paying Gas/Electric Bills: No Difficulty Paying for Meds: No Currently Unemployed: No Education: Bachelor's Degree Difficulty w/ Childcare or Family Care: No Living arrangements: with family Occupation/Education: occupation Gender identity (if verbalized by the patient): Male Spiritual care concerns: No Anes - Eval Final PreProcedure Day of Procedure 02/16/24 12:56 Patient weight: normal Heart: regular rate and rhythm Lungs: clear to auscultation Airway: Mallampati scale class 1 Neurological: alert and oriented Last oral intake: >/= 8 hours ASA classification: II Emergent: no Anesthetic plan: proceed Anesthesia type and monitoring: general GIVS and standard monitoring Results Review: All pre-operative results and documents have been reviewed as part of the pre-operative evaluation. Informed Consent: The patient's anesthetic plan and its attendant risks and benefits were discussed with the patient/family/POA. Questions were solicited and answers provided to the satisfaction of the patient/family/POA.
--- NOTE | 2024-02-16 13:25 | WPDHPUPDATE1 ---
History and Physical Update Update Date/Time: 02/16/24 13:25 History and Physical has been reviewed, including an updated exam of the patient. There are NO changes in the patient's condition. Risks, benefits, and alternatives have been discussed and questions answered. Patient agrees to proceed with procedure.
[2024-02-16 13:37] VITALS: BP 107/63; PULSE 58; RESP 16; O2SAT 98
[2024-02-16 13:47] VITALS: BP 112/68; PULSE 54; RESP 17; O2SAT 100
[2024-02-16 13:57] VITALS: BP 119/82; PULSE 57; RESP 24; O2SAT 100
== END 2024-02-16 14:07 | disposition home or self-care (01) ==
PROVIDERS: PCP Family Medicine; Referring Provider Nurse Practitioner; Visit Provider Internal Medicine Gastroenterology
PROC: 0DJ08ZZ Inspection of Upper Intestinal Tract, Via Natural or Artificial Opening Endoscopic (ICD-10-PCS; CPT 43235; principal; 2024-02-16 13:30)
DX: K29.70 Gastritis, unspecified, without bleeding (principal); K21.9 Gastro-esophageal reflux disease without esophagitis; G89.29 Other chronic pain; M54.9 Dorsalgia, unspecified; F32.A Depression, unspecified; M41.9 Scoliosis, unspecified; F17.290 Nicotine dependence, other tobacco product, uncomplicated; Z98.890 Other specified postprocedural states; Z90.49 Acquired absence of other specified parts of digestive tract; Z82.49 Family history of ischemic heart disease and other diseases of the circulatory system
CPT/HCPCS: 43239; 88305; J2001; J2704; J7120

== ENCOUNTER 2024-02-18 08:20 | Outpatient (CLI) | payer BC, SELFPAY ==
--- NOTE | ~2024-02-18 | US_ITS ---
Limited Abdominal Sonogram: Real-time sonographic imaging of the right upper quadrant was performed. Clinical History: Respiratory quadrant pain, elevated bilirubin, splenomegaly Findings: The liver appears normal with no evidence of mass lesion or bile duct dilatation. Main por stu vein demonstrates normal direction of flow. The gallbladder is absent, compatible prior cholecyst ectomy. The common bile duct measures 4 mm. The visualized pancreas, aorta, and IVC are unremarkable . Spleen is within normal limits. Impression: Status post cholecystectomy, otherwise unremarkable exam. Reviewed, dictated and finalized at location M. Impression: Status post cholecystectomy, otherwise unremarkable exam.
== END 2024-02-18 08:21 | disposition home or self-care (01) ==
PROVIDERS: PCP Family Medicine; Visit Provider Nurse Practitioner
DX: R16.1 Splenomegaly, not elsewhere classified (principal); E80.6 Other disorders of bilirubin metabolism; Z90.49 Acquired absence of other specified parts of digestive tract
CPT/HCPCS: 76705

== ENCOUNTER 2024-06-01 16:02 | Outpatient (CLI) | payer BC, SELFPAY ==
--- NOTE | ~2024-06-01 | MR_ITS ---
EXAMINATION: MR abdomen wo/w con DATE: 06/01/2024 16:52 INDICATION: Abnormal liver function tests. Abdominal pain. TECHNIQUE: Magnetic resonance imaging (MRI) of the abdomen was performed without and with 18 mL Multi Lexii intravenous contrast. COMPARISON: CT abdomen and pelvis 12/08/2023, 08/13/15, abdomen ultrasound 02/18/2024 FINDINGS: The liver is normal. There is mild splenomegaly. The gallbladder is absent. The pancreas and adrenal glands are normal. There are cysts in the kidneys measuring up to 6 mm. There are no dilated loops of bowel. There are no pathologically enlarged lymph nodes. There is no free intraperitoneal fluid. IMPRESSION: 1. Mild splenomegaly, stable from 08/13/2015. Reviewed, dictated and finalized at location A. NTIFIC ADVISOR
== END 2024-06-01 16:03 | disposition home or self-care (01) ==
LOC: MICIMG 16:03
PROVIDERS: PCP Family Medicine; Visit Provider Nurse Practitioner
DX: R74.01 Elevation of levels of liver transaminase levels (principal); R16.1 Splenomegaly, not elsewhere classified
CPT/HCPCS: 74183; A9577

== ENCOUNTER 2024-08-21 16:20 | Outpatient (CLI) | payer BC, SELFPAY ==
--- OUTSIDE RECORDS SUMMARY | 2024-08-21 18:31 | XMS_ITS | Referral Summary ---
Author Organization [facility] Address [address] [place] [address] Care Team Providers Care Neonatal Pediatric Nurse Name Role Phone Aba Cruz MD Primary Care Provider Allergies Active Allergy Reactions Criticality Noted Date Comments Penicillins Medications sertraline (ZOLOFT) 100 mg tablet 12/29/2018 Active buPROPion (WELLBUTRIN) 75 mg tablet Take 1 tablet (75 mg total) by mouth daily 02/06/2023 Active cetirizine (ZyrTEC) 10 mg tablet Take 1 tablet (10 mg total) by mouth daily Active Active Problems Problem Noted Date Diagnosed Date Spinal cord compression 12/07/2013 Scoliosis 11/30/2013 Social History Tobacco Use Types Packs/Day Years Used Date Smoking Tobacco: Never Personal Safety Answer Date Recorded Have you ever been in or are you currently in a harmful physical or emotional relationship or is someone making you feel afraid or unsafe? 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 RIVET BU[employer]ER Gender Identity Not on file Sexual Orientation Not on file Last Filed Vital Signs Vital Sign Reading Time Taken Comments Blood Pressure 122/88 06/09/2023 9:16 AM RIVET BUCKER Pulse 86 06/09/2023 9:16 AM RIVET BUCKER Temperature 36.9 C (98.5 F) 03/24/2023 11:07 AM CDT Respiratory Rate 16 06/09/2023 9:16 AM RIVET BUCKER Oxygen Saturation 99% 06/09/2023 9:16 AM RIVET BUCKER Inhaled Oxygen Concentration - - Weight 97.5 kg (215 lb) 03/24/2023 11:07 AM CDT Height 195.6 cm (6' 5 ) 03/24/2023 11:07 AM CDT Body Mass Index 25.5 03/24/2023 11:07 AM CDT Plan of Treatment Not on file Insurance [employer] ACCESS OOS [employer]OS Care Teams Neonatal Pediatric Nurse Relationship Specialty Start Date End Date Aba Cruz MD PCP - General Family Practice 12/02/18
--- OUTSIDE RECORDS SUMMARY | 2024-08-21 18:31 | XMS_ITS | Clinical Summary ---
Author Organization [facility] Address [address] [place] [address] Care Team Providers Care Litigation Associate Name Role Phone Aba Cruz MD Primary [...] Date Spinal cord compression 12/07/2013 Scoliosis 11/30/2013 Surgical History Surgery Date Site/Laterality Comments GA CHOLECYSTECTOMY Cholecystectomy - (Added by TW Conv) FL UPPER GI AIR CONTRAST W KUB 05/04/2023 Bilateral FL UPPER GI AIR CONTRAST W KUB 06/09/2023 Left Medical History Medical History Date Comments Personal history of other me ntal and behavioral disorders History of depression - (Add ed by TW Conv) Family History Medical History Relation Name Comments Cancer Other Family history of cancer - (Added by TW Conv) Relation Name Status Comments Other Social History Tobacco Use Types Packs/Day Years Used Date Smoking Tobacco: Never Personal Safety Answer Date Recorded Have you ever been in or are you currently in a harmful physical or emotional relationship or is someone making you feel afraid or unsafe? 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 [employer] Gender Identity Not on file Sexual Orientation Not on file Obstetrics History Last Filed Vital Signs Vital Sign Reading Time Taken Comments Blood Pressure 122/88 06/09/2023 9:16 AM [employer] Pulse 86 06/09/2023 9:16 AM [employer] Temperature 36.9 C (98.5 F) 03/24/2023 11:07 AM CDT Respiratory Rate 16 06/09/2023 9:16 AM [employer]GE [employer] Oxygen Saturation 99% 06/09/2023 9:16 AM [employer]GE [employer] Inhaled Oxygen Concentration - - Weight 97.5 kg (215 lb) 03/24/2023 11:07 AM CDT Height 195.6 cm (6' 5 ) 03/24/2023 11:07 AM CDT Body Mass Index 25.5 03/24/2023 11:07 AM CDT Plan of Treatment Health Maintenance Due Date Last Done Comments Depression Screening 1983 Hepatitis C Screening 1983 DTaP/Tdap/Td Vaccine (1 - Tdap) 1994 Varicella Vaccines (1 of 2 - 13+ 2-dose series) 1996 Hepatitis B Screening 2001 Regular Well Visit/Exam 18-64 2001 Covid-19 Vaccine (3 - 2023-2 5 season) 2024 04/09/2022, 08/02/2020 Influenza Vaccine (#1) 2024 HPV Vaccines Aged Out No longer eligi ble based on patient's age to complete this topic Pneumococcal vaccine <65 Aged Out No longer eligible based on patient's age to complete this topic Insurance [employer] O[employer] Care Teams Litigation Associate Relationship Specialty Start Date End Date Aba Cruz MD PCP - General Family Practice 12/02/18
[2024-08-21 20:20] LABS: Alanine Aminotransferase 28 U/L (6-50); Albumin Level 4.8 g/dL (3.5-5.1); Alkaline Phosphatase 58 U/L (38-126); Aspartate Amino Transferase 22 U/L (17-59); Bilirubin,Total 1.8 mg/dL (0.2-1.3)
== END 2024-08-21 16:21 | disposition home or self-care (01) ==
LOC: ANHGOSHLAB 16:22
PROVIDERS: PCP Family Medicine; Visit Provider Nurse Practitioner Family
DX: R74.8 Abnormal levels of other serum enzymes (principal); E80.6 Other disorders of bilirubin metabolism
CPT/HCPCS: 36415; 80076